=== PATIENT | female | born 1990 ===

== ENCOUNTER 2023-06-11 15:20 | Outpatient (AMB) | payer OTHER, SELFPAY ==
--- NOTE | 2023-06-11 15:22 | AM.OFFWIN_ITS ---
Intake Vital Signs 06/11/23 15:24 Height 5 ft 1 in Intake Visit Reasons: EP Stomach pain Intake Note: pt is here for c/o of stomach pain, stomach wheatley with eating or drinking 1 week Patient Tobacco Use Status: Never used Tobacco Allergies No Known Allergies Allergy (Verified 06/11/23 15:24) Medication List - Last Reconciled 06/11/23 by Chelsy Duron NP famotidine 20 mg PO BEDTIME simethicone (Gas Relief (simethicone)) 80 mg PO BID-QID PRN Do you need a note to return to daycare/school/sports/work: Yes HPI HPI Comments History of Present Illness Details 33 Y/O healthy female who [facility] to [facility] with c/o Rt upper quadrant pain x 1 week. Reports pain is constant, cramping in nature and rates it at 9/10. Pain assocaited with Nausea but no vomiting. Pain aggravated with food or liquids. Denies fevers, chills, Rectal/GI bleed, constipation or diarrhea, but admits to bloating. Denies vaginal or urinary symptoms. Not sexually active. LMP: last week of April. Denies any h/o drug abuse or STI. Denies any diet changes. Denies h/o abd surgery, trauma or injury. Denies . Reports poor appetite and has not eaten any solids for days due to pain. PFSH Social History Patient Tobacco Use Status: Never used Tobacco Review of Systems Const All systems reviewed & are unremarkable except as noted in HPI and below Physical Exam Const General: comfortable and no acute distress Resp Effort & Inspection: normal respiratory effort Auscultation: clear to auscultation bilaterally GI Inspection: Yes normal to inspection, No Abdominal wall edema, No distended, No incision, No obesity, No visible herniation and No visible pulsation Palpation (GI): Soft to palpation and Tenderness to palpation present (GI) (Soft, flat and normal Bowel sounds.) in the epigastrum and in the RUQ Auscultation: normal bowel sounds General: Yes bladder normal to palpation and Yes no CVA tenderness Bimanual exam- vagina & uterus: bladder normal to palpation OB/external & speculum: Deferred OB/external & speculum exam Back/Spine/Pelvis Back: no CVA tenderness Assessment & Plan Assessment & Plan (1) Right upper quadrant abdominal pain: Code(s): R10.11 - Right upper quadrant pain Plan: DDx's: Appendicitis, Gall stone, cholecystitis, Kidney stone,abdominal muscle strain, Internal hernia. - Will tx with Antiacids and Antihistamine. - Pt to report any severe pain, GI bleed, fevers and vomiting. - Ordered Abd US to r/o any infection. Plan DDx's: Appendicitis, Gall stone, cholecystitis, Kidney stone,abdominal muscle s train, Internal hernia. - Will tx with Antiacids and Antihistamine. - Pt to report any severe pain, GI bleed, fevers and vomiting. - Ordered Abd US to r/o any infection. - Advised to advance her diet slowly from liquids to solids. Orders: Orders US abdomen complete Today R10.11 - Right upper quadrant pain JONATHAN Leong Medications: New simethicone (Gas Relief (simethicone)) 80 mg PO BID-QID PRN 30 tabs 0RF abdominal distention R10.11 - Right upper quadrant pain Chelsy Duron NP famotidine 20 mg PO BEDTIME 30 tabs 0RF R10.11 - Right upper quadrant pain Chelsy Duron NP Coding Level of Care Code New Pt Level 3 (95171) Diagnoses Right upper quadrant abdominal pain R10.11 Time Spent (min) 15
== END 2023-06-11 17:00 | disposition home or self-care (01) ==
PROVIDERS: PCP Internal Medicine; Visit Provider Nurse Practitioner Family
DX: R10.11 Right upper quadrant pain (principal)
CPT/HCPCS: 99203

== ENCOUNTER 2023-06-11 16:12 | Outpatient (REF) | payer OTHER, SELFPAY ==
--- NOTE | ~2023-06-11 | US_ITS ---
EXAMINATION: US ABDOMEN COMPLETE CLINICAL INFORMATION: Right upper quadrant pain. COMPARISON: CT abdomen/pelvis 04/02/2023. TECHNIQUE: Real-time imaging of the abdominal viscera. FINDINGS: PANCREAS: Normal. ABDOMINAL AORTA: The proximal, mid, and distal segments are normal in caliber. INFERIOR VENA CAVA: Visualized portions are normal. LIVER: Normal. The liver is normal in size. The liver contour is normal. Parenchymal echogenicity is normal. No focal hepatic lesion. There is no intrahepatic biliary duct dilatation seen. GALLBLADDER: Normal. The gallbladder is physiologically distended without evidence of stones, sludge, polyps, wall thickening or pericholecystic fluid. COMMON BILE DUCT: Normal in caliber measuring 0.2 cm in diameter. RIGHT KIDNEY: Normal. No hydronephrosis. No renal calculi or focal parenchymal lesions. The kidney measures 10.5 cm in maximum dimension. LEFT KIDNEY: Normal. No hydronephrosis. No renal calculi or focal parenchymal lesions. The kidney measures 10.4 cm in maximum dimension. SPLEEN: Normal. The spleen measures 9.6 cm in maximum dimension. FREE FLUID: None. US/US abdomen complete IMPRESSION: No acute sonographic abnormalities to explain the patient's symptoms.
== END 2023-06-11 16:13 | disposition home or self-care (01) ==
LOC: HO.US 16:12
PROVIDERS: Visit Provider Physician Assistant Medical
DX: R10.11 Right upper quadrant pain (principal)
CPT/HCPCS: 76700